=== PATIENT | male | born 1940 | race Caucasian/White ===

== ENCOUNTER 2019-09-26 14:15 | Outpatient (CLI) | payer MEDICARE, BC | END 2019-09-26 23:59 | disposition home or self-care (01) | LOC: CARD 14:15 | PROVIDERS: ATTEND Internal Medicine Cardiovascular Disease | DX: R06.02 Shortness of breath (principal); R00.0 Tachycardia, unspecified | CPT/HCPCS: 94060; 94726; 94729 ==